=== PATIENT | male | born 1995 | race Caucasian/White ===

== ENCOUNTER 2018-09-27 01:31 | Emergency (ER) | payer OTHER ==
--- NOTE | 2018-09-27 02:06 | EDPHY ---
H & P Stated Complaint: L FOOT LAC/DROPPED GLASS Time Seen by Provider: 09/27/18 01:46 HPI/ROS: HPI: The patient presents with left toe laceration sustained just about 30 min prior to arrival. He was sitting and accidentally hit a mug on the coffee table which shattered and landed on his foot. He has been able to walk. He did see bone. He has mild pain of the toe. REVIEW OF SYSTEMS 10 systems were reviewed and negative with the exception of the elements mentioned in the history of present illness. PMHx: Healthy TRAUMA PHYSICAL General Appearance: Alert, no distress Head: Atraumatic Respiratory: Breathing comfortably Cardiovascular: Regular rate and rhythm Extremities: L toe anterior aspect with 1.5 cm transverse laceration, full range of motion of toes Neurological: A&Ox3, GCS=15,normal sensory exam Source: Patient Exam Limitations: No limitations - Personal History Current Tetanus Diphtheria and Acellular Pertussis (TDAP): Yes Tetanus Vaccine Date: WITHIN 10 Y - Medical/Surgical History Hx Asthma: No Hx Chronic Respiratory Disease: No Hx Diabetes: No Hx Cardiac Disease: No Hx Renal Disease: No Hx Cirrhosis: No Hx Alcoholism: No Hx HIV/AIDS: No Hx Splenectomy or Spleen Trauma: No Other PMH: HYDROCELE REPAIR - Social History Smoking Status: Light smoker Constitutional: Initial Vital Signs Temperature (C) 36.4 C 09/27/18 01:35 Heart Rate 71 09/27/18 01:35 Respiratory Rate 16 09/27/18 01:35 Blood Pressure 128/69 H 09/27/18 01:35 O2 Sat (%) 99 09/27/18 01:35 O2 Delivery Mode Room Air Allergies/Adverse Reactions: amoxicillin [Amoxicillin] Allergy (Intermediate, Verified 04/25/12 09:47) Hives Home Medications: Medication Instructions Recorded NK [No Known Home Meds] 09/27/18 Medical Decision Making Procedures: LACERATION REPAIR Procedure: Laceration repair. Verbal consent was obtained from the patient. The linear 1 cm laceration on the left 3rd toe was anesthetized using lidocaine. The wound was scrubbed, draped and explored to its base with a gloved finger. Extensor tendon injury was identified with partial tear . The wound was repaired with simple interrupted and horizontal mattress suture. The wound repair was simple. The procedure was performed by myself. Differential Diagnosis: 23-year-old male with injury to left 3rd toe with laceration and extensor tendon injury. I will superficially closed the wound and refer the patient to Podiatry for further care. Departure - Departure Disposition: Home, Routine, Self-Care Clinical Impression: Toe laceration Qualifiers: Encounter type: initial encounter Toe: lesser toe Damage to nail status: without damage Foreign body presence: without foreign body Laterality: left Qualified Code(s): S91.115A - Laceration without foreign body of left lesser toe (s) without damage to nail, initial encounter Laceration of toe involving extensor tendon Qualifiers: Encounter type: initial encounter Qualified Code(s): S91.119A - Laceration without foreign body of unspecified toe without damage to nail, initial encounter Condition: Good Instructions: Care For Your Stitches (ED) Additional Instructions: We found today that you have cut a tendon in your foot, because of this you must follow up with Podiatry. Please call them tomorrow to schedule an appointment in 1-2 days. Please keep the shoe on until then. Please keep the wound covered. Return to the emergency department if your worse in any way. Referrals: YASSINE HOOD [Primary Care Provider] - As per Instructions Mesha Ceron DPM [Doctor of Podiatric Medicine] - As per Instructions
[2018-09-27 03:09] VITALS: BP 113/74
== END 2018-09-27 03:09 | disposition home or self-care (01) ==
PROC: 0HQNXZZ Repair Left Foot Skin, External Approach (ICD-10-PCS; principal; 2018-09-27)
DX: S91.115A Laceration without foreign body of left lesser toe(s) without damage to nail, initial encounter (principal); S96.112A Strain of muscle and tendon of long extensor muscle of toe at ankle and foot level, left foot, initial encounter; W25.XXXA Contact with sharp glass, initial encounter; Z72.0 Tobacco use
CPT/HCPCS: L4386